=== PATIENT | female | born 1980 | race African-American/Black ===

== ENCOUNTER 2017-05-21 18:27 | Emergency (ER) | payer MEDICAID ==
[~2017-05-21] VITALS: Ht 185.4 cm; Wt 104.4 kg
[2017-05-21 18:54] LABS: HEMATOCRIT 42.3 % (34.6-47.8)
[2017-05-21 19:05] LABS: ASPARTATE AMINO TRANSFERASE 9 U/L (15-37); BLOOD UREA NITROGEN 8 mg/dL (7-18)
[2017-05-21] MEDS ORDERED: CEFTRIAXONE PMX 1GM/50ML 50 ML ONE (20:54)
[2017-05-21 21:35] VITALS: BP 114/91
== END 2017-05-21 22:27 | disposition home or self-care (01) ==
LOC: ED 21:16
DX: R30.0 Dysuria (principal)
CPT/HCPCS: 36415; 76830; 80053; 81003; 84703; 85025; 87210; 87491; 87591; 87808; 99285